=== PATIENT | female | born 1990 | race American Indian/Alaskan Native ===

== ENCOUNTER 2018-01-09 01:05 | Inpatient (IN) | payer OTHER ==
[2018-01-09] MEDS ORDERED: XYLOCAINE 2% INFILTRATI ONE ×2 (01:10→04:50)
[2018-01-09] MEDS ORDERED: STADOL IV PRN (01:10)
[2018-01-09] MEDS ORDERED: ePHEDrine SULFATE IV PRN (01:10)
[2018-01-09] MEDS ORDERED: ZOFRAN IV PRN ×2 (01:10→05:07)
[2018-01-09] MEDS ORDERED: SUBLIMAZE IV PRN (01:10)
[2018-01-09] MEDS ORDERED: BRETHINE IVP PRN (01:10)
[2018-01-09] MEDS ORDERED: MINERAL OIL PO PRN (01:10)
[2018-01-09] MEDS ORDERED: BRETHINE SUB-Q PRN (01:10)
[2018-01-09] MEDS ORDERED: PHENERGAN PO PRN ×2 (01:10→05:07)
[2018-01-09] MEDS ORDERED: NARCAN 0.4 MG/1 ML IV PRN (01:10)
--- NOTE | 2018-01-09 01:13 | History and Physical Report ---
History of Present Illness Date of examination: 01/09/18 Date of admission: 01/09/18 01:05 Chief complaint: Labor History of present illness: Pt is a 27yo BF EDC 01/06/18; EGA 40 3/7 weeks presents to L&D complaining of RUC's q 3-4 mins. She received care at [facility] since 15 weeks and course has been unremarkable. records were not available at delivery, but are available now, and GBS is Positive. Past History Past Medical History: no pertinent history Past Surgical History: [employer]/uterine surgery (salpingectomy for ectopic ) Family/Genetic History: none Social history: no significant social history, single - Obstetrical History Expected Date of Delivery: 01/06/18 Actual Gestation: 40 Week(s) 3 Day(s) Medications and Allergies Allergies Allergy/AdvReac Type Severity Reaction Status Date / Time cetirizine [From [facility]] Allergy Shortness Verified 01/09/18 01:15 of Breath Home Medications Medication Instructions Recorded Confirmed Last Taken Type No Known Home Medications [No 01/09/18 01/09/18 Unknown History Reported Home Medications] Review of Systems All systems: negative - Physical Exam Breasts: Positive: deferred Cardiovascular: Regular rate Lungs: Positive: Clear to auscultation Abdomen: Positive: normal appearance Genitourinary (Female): Positive: normal external genitalia Vagina: Positive: normal moisture Uterus: Positive: enlarged Extremities: Positive: normal - Obstetrical FHR: category 1 Uterine Contraction Monitor Mode: External Cervical Dilatation: 5 Cervical Effacement Percentage: 90 station: -2 Uterine Contraction Pattern: Regular Uterine Tone Measurement Phase: Contraction Results Result Diagrams: 01/09/18 01:05 01/09/18 06:00 All other labs normal. Assessment and Plan - Patient Problems (1) 40 weeks gestation of Onset Date: 01/09/18 Current Visit: Yes Status: Acute Plan to address problem: A: IUP @ 40 3/7 weeks in labor Unknown GBS P: Admit to L&D for expectant vaginal delivery IV Ampicillin Obtain Medical records
[2018-01-09 01:37] LABS: Hemoglobin 11.5 gm/dl (10.1-14.3); Mean Corpuscular HGB Conc 34 % (30-34); Mean Corpuscular Hemoglobin 29 pg (28-32); Mean Corpuscular Volume 87 fl (79-97); Platelet Count 318 K/mm3 (140-440); Red Blood Count 3.89 M/mm3 (3.65-5.03); Red Cell Distribution Width 13.3 % (13.2-15.2)
[2018-01-09] MEDS ORDERED: PITOCin/NS 30 UNIT/500ML 30 UNITS/500 ML BAG IV SCH (02:00)
[2018-01-09] MEDS ORDERED: PITOCin/NS 20 UNIT/1000ML DRIP 20 UNITS/1,000 ML BAG IV SCH ×2 (02:00→06:00)
[2018-01-09] MEDS ORDERED: LACTATED RINGERS 1,000 ML IV SCH (02:00)
[2018-01-09] MEDS ORDERED: METHERGINE IM ONE ×2 (04:52→05:59)
[2018-01-09] MEDS ORDERED: CYTOTEC ONE (04:52)
--- NOTE | 2018-01-09 05:06 | Procedure Note ---
OB Delivery Note - Delivery Date of Delivery: 01/09/18 Surgeon: AMY STEVENSON Estimated blood loss: other (350cc) - Vaginal Delivery presentation: vertex Delivery position: OA Intrapartum events: none Delivery induction: none Delivery augmentation: rupture of membranes Delivery monitor: external FHT, external uterine Route of delivery: Delivery placenta: spontaneous Delivery cord: nuchal cord (x1), 3 umbilical vessels Episiotomy: none Delivery laceration: 2nd degree (perineal) Delivery repair: vicryl Anesthesia: intravenous Delivery comments: delivered OA over intact perineum and placed on Mom's chest for skin-to- skin bonding and delayed cord clamping. - Infant A at 1 minute: 8 at 5 minutes: 9 Gender: Female (3120gms)
[2018-01-09] MEDS ORDERED: TYLENOL PO PRN (05:07)
[2018-01-09] MEDS ORDERED: LANSINOH TP PRN (05:07)
[2018-01-09] MEDS ORDERED: DULCOLAX PR PRN (05:07)
[2018-01-09] MEDS ORDERED: TUCKS PAD TP PRN (05:07)
[2018-01-09] MEDS ORDERED: PHENERGAN PR PRN (05:07)
[2018-01-09] MEDS ORDERED: MILK OF MAGNESIA PO PRN (05:07)
[2018-01-09] MEDS ORDERED: BENADRYL PO PRN (05:07)
[2018-01-09] MEDS ORDERED: SODIUM CHLORIDE FLUSH SYRINGE 10 ML IV NR (06:00)
[2018-01-09] MEDS: NORCO 5/325 PO PRN (06:19)
[2018-01-09 07:36] LABS: Alanine Aminotransferase 6 units/L (7-56); Albumin 3.2 g/dL (3.9-5); BUN/Creatinine Ratio 13; Blood Urea Nitrogen 5 mg/dL (7-17); Calcium 8.7 mg/dL (8.4-10.2); Hemolysis Index 7
[2018-01-09] MEDS: PRENATAL VITAMIN PO SCH (11:02)
[2018-01-09] MEDS: MOTRIN PO SCH ×3 (11:02→17:52)
[2018-01-09] MEDS: FEOSOL PO SCH (11:02)
[2018-01-09] MEDS: COLACE PO SCH (11:02)
[2018-01-09] MEDS ORDERED: DERMOPLAST TP PRN (11:24)
[2018-01-09 18:04] LABS: Hematocrit 30.5 % (30.3-42.9); Hemoglobin 9.9 gm/dl (10.1-14.3)
[2018-01-10] MEDS: FEOSOL PO SCH ×3 (00:27→22:11)
[2018-01-10] MEDS: MOTRIN PO PRN (00:27)
[2018-01-10] MEDS: COLACE PO SCH ×3 (00:27→22:11)
[2018-01-10] MEDS ORDERED: BOOSTRIX IM ONE (06:00)
[2018-01-10] MEDS ORDERED: M-M-R II VACCINE SUB-Q ONE (06:00)
[2018-01-10] MEDS: NORCO 5/325 PO PRN ×3 (06:30→20:39)
[2018-01-10] MEDS: MOTRIN PO SCH ×4 (06:37→18:32)
--- NOTE | 2018-01-10 08:18 | Progress Note ---
Assessment and Plan - Patient Problems (1) 40 weeks gestation of Onset Date: 01/09/18 Current Visit: Yes Status: Resolved (2) (normal spontaneous vaginal delivery) Onset Date: 01/10/18 Current Visit: Yes Status: Resolved Plan to address problem: A: S/P - PPD #1 Doing well Asymptomatic anemia - stable P: May go home tomorrow. Subjective - Subjective Date of service: 01/10/18 Principal diagnosis: s/p - PPD #1 Interval history: Pt is feeling well without complaints. Bleeding improved. Patient reports: appetite normal, voiding normally, pain well controlled, ambulating normally [place]: doing well, nursing well, bottle feeding Objective - Vital Signs Latest vital signs: Vital Signs Temp Pulse Resp BP BP Pulse Ox 01/10/18 06:37 18 01/10/18 06:30 20 01/10/18 01:27 18 01/10/18 01:25 98.2 F 61 20 120/77 97 01/10/18 01:06 98.6 F 01/10/18 00:27 18 01/09/18 18:08 98.4 F 72 18 141/71 98 01/09/18 12:02 98.6 F 77 18 128/75 97 01/09/18 11:02 20 01/09/18 08:40 98.4 F 51 L 20 148/84 100 01/09/18 08:24 55 L 160/87 Intake and Output 01/09/18 01/10/18 01/10/18 22:59 06:59 14:59 Intake Total 12 360 Output Total 120 Balance -108 360 Intake: Oral 12 360 Output: Urine 120 Void 120 Other: Total, Intake Amount 12 240 Total, Output Amount 120 # Voids Void 1 - Exam Breasts: Present: deferred Cardiovascular: Present: Regular rate Lungs: Present: Clear to auscultation Abdomen: Present: normal appearance, soft Uterus: Present: normal, firm, fundal height below umbilicus Extremities: Present: normal - Labs Labs: Abnormal lab results 01/09/18 Range/Units 17:17 Hgb 9.9 L (10.1-14.3) gm/dl Laboratory Tests 01/09/18 01/09/18 01/09/18 01:05 01:05 01:05 WBC 9.7 RBC 3.89 Hgb 11.5 Hct 34.0 MCV 87 MCH 29 MCHC 34 RDW 13.3 Plt Count 318 Sodium Potassium Chloride Carbon Dioxide Anion Gap BUN Creatinine Estimated GFR BUN/Creatinine Ratio Glucose Calcium Total Bilirubin AST ALT Alkaline Phosphatase Total Protein Albumin Albumin/Globulin Ratio RPR Nonreactive Blood Type O POSITIVE Antibody Screen Negative 01/09/18 01/09/18 06:00 17:17 WBC RBC Hgb 9.9 L Hct 30.5 MCV MCH MCHC RDW Plt Count Sodium 139 Potassium 3.9 Chloride 102.1 Carbon Dioxide 21 L Anion Gap 20 BUN 5 L Creatinine 0.4 L Estimated GFR > 60 BUN/Creatinine Ratio 13 Glucose 88 Calcium 8.7 Total Bilirubin 0.50 AST 17 ALT 6 L Alkaline Phosphatase 174 H Total Protein 6.5 Albumin 3.2 L Albumin/Globulin Ratio 1.0 RPR Blood Type Antibody Screen
--- NOTE | 2018-01-10 09:01 | Discharge Summary ---
Providers - Providers Date of Admission: 01/09/18 01:05 Date of discharge: 01/11/18 Attending physician: AMY STEVENSON Primary care physician: AMY STEVENSON Hospitalization Reason for admission: active labor, IUP at term Delivery: Episiotomy: none Laceration: 2nd degree Other procedures: none complications: none Discharge diagnosis: IUP at term delivered [place] baby: female Hospital course: Unremarkable. Condition at discharge: Good Disposition: DC-01 TO HOME OR SELFCARE - Discharge Diagnoses (1) 40 weeks gestation of Status: Resolved (2) (normal spontaneous vaginal delivery) Status: Resolved Plan - Discharge Medications Prescriptions: Ferrous Sulfate [Feosol 325 MG tab] 325 mg PO BID #60 tablet HYDROcodone/APAP 5-325 [[place] 5-325 mg TAB] 1 each PO Q6H PRN #10 tablet PRN Reason: Pain, Moderate (4-6) Ibuprofen [Motrin 600 MG tab] 600 mg PO Q6H #30 tablet Vit-Fe Fumar-FA [ Vitamin] 1 each PO QDAY #30 tablet - Provider Discharge Summary Activity: routine, no sex for 6 weeks, no heavy lifting 4 weeks, no strenuous exercise Diet: routine Instructions: routine Additional instructions: [] Smoking cessation referral if applicable(refer to patient education folder for contact #) [] Refer to [facility]'s [facility] Booklet Call your doctor immediately for: * Fever > 100.5 * Heavy vaginal bleeding ( >1 pad per hour) * Severe persistent headache * Shortness of breath * Reddened, hot, painful area to leg or breast * Drainage or odor from incision. * Keep incision clean and dry at all times and follow doctor's instructions regarding bathing/showering - Follow up plan Follow up: AMY STEVENSON MD [Primary Care Provider] - 6 Weeks
[2018-01-10] MEDS: PRENATAL VITAMIN PO SCH (12:16)
[2018-01-11] MEDS: MOTRIN PO PRN (00:02)
[2018-01-11] MEDS: MOTRIN PO SCH ×3 (00:07→12:11)
[2018-01-11] MEDS: FEOSOL PO SCH (10:30)
[2018-01-11] MEDS: COLACE PO SCH (10:30)
[2018-01-11] MEDS: PRENATAL VITAMIN PO SCH (11:19)
[2018-01-11 13:27] VITALS: BP 140/70
== END 2018-01-11 15:05 | disposition home or self-care (01) | DRG 775 ==
LOC: LD 01:05 → OB 09:46
PROVIDERS: ADMIT Obstetrics & Gynecology; ATTEND Obstetrics & Gynecology
PROC: 10E0XZZ Delivery of Products of Conception, External Approach (ICD-10-PCS; principal; 2018-01-09)
PROC: 0KQM0ZZ Repair Perineum Muscle, Open Approach (ICD-10-PCS; 2018-01-09)
PROC: 3E0234Z Introduction of Serum, Toxoid and Vaccine into Muscle, Percutaneous Approach (ICD-10-PCS; 2018-01-09)
DX: O69.81X0 Labor and delivery complicated by cord around neck, without compression, not applicable or unspecified (principal); O99.824 Streptococcus B carrier state complicating childbirth; Z3A.40 40 weeks gestation of pregnancy; Z37.0 Single live birth; O70.1 Second degree perineal laceration during delivery; O90.81 Anemia of the puerperium; D64.9 Anemia, unspecified; Z23 Encounter for immunization
CPT/HCPCS: 36415; 80053; 85014; 85018; 85027; 86592; 86850; 86900; 86901; 90707; 99211; G0463; J0595; J2210; J2405; J7120